=== PATIENT | female | born 1985 | race African-American/Black ===

== ENCOUNTER 2017-08-08 22:35 | Observation (INO) | payer MEDICAID ==
[2017-08-08] MEDS ORDERED: ACETAMINOPHEN 325 MG TAB PO ONE (23:30)
[2017-08-09] MEDS ORDERED: PREN-153 OR (00:21)
== END 2017-08-09 00:02 | disposition home or self-care (01) | DRG 781 ==
LOC: LDRP 22:35
PROVIDERS: ADMIT Obstetrics & Gynecology; ATTEND Obstetrics & Gynecology
DX: O26.893 Other specified pregnancy related conditions, third trimester (principal); O62.9 Abnormality of forces of labor, unspecified; R10.9 Unspecified abdominal pain; R10.2 Pelvic and perineal pain; Z3A.32 32 weeks gestation of pregnancy
CPT/HCPCS: 59025; 81002; G0378

== ENCOUNTER 2017-09-07 19:57 | Observation (INO) | payer MEDICAID ==
[~2017-09-07 19:57] MED LIST: PREN-153 OR
== END 2017-09-07 21:19 | disposition home or self-care (01) | DRG 566 ==
LOC: LDRP 19:57
PROVIDERS: ADMIT Obstetrics & Gynecology; ATTEND Obstetrics & Gynecology
DX: O36.8130 Decreased fetal movements, third trimester, not applicable or unspecified (principal); Z3A.37 37 weeks gestation of pregnancy
CPT/HCPCS: 59025; 76818; 81002; G0378

== ENCOUNTER → 2017-09-11 | Outpatient (CLI) | payer MEDICAID ==
[2017-09-11 10:51] LABS: Basophils # (auto) 0 uL; Basophils % (auto) 0.3 % (0.0-2.0); Eosinophils # (auto) 0.1 uL; Hematocrit 35.6 % (36.0-46.0); Hemoglobin 11.8 g/dL (12.2-16.2); Lymphocytes # (auto) 1.6 uL; Lymphocytes % (auto) 12.1 % (10.0-50.0); Mean Corpuscular Hemoglobin 30.6 pg (28.0-32.0); Mean Corpuscular Hgb Conc. 33.2 g/dL (32.0-36.0); Monocytes # (auto) 0.9 uL; Monocytes % (auto) 6.8 % (0.0-12.0); Neutrophils # (auto) 10.5 uL; Neutrophils % (auto) 79.8 % (37.0-80.0); Nucleated Red Blood Cells % 0.1 %; Platelet Count (auto) 234 10^3/uL (140-450); Red Blood Cells 3.86 10^6/uL (4.0-5.20); Red Cell Distribution Width 15.1 % (11.8-14.3); White Blood Cell 13.2 10^3/uL (4.4-10.8)
[2017-09-11 13:30] LABS: Alcohol, Urine < 3.0 mg/dL (0-5); Amphetamine Screen, Urine NEGATIVE (NEGATIVE); Barbiturate Scree,Urine NEGATIVE (NEGATIVE); Benzodiazephine Screen, Urine NEGATIVE (NEGATIVE); Cannabinoid Screen, Urine NEGATIVE (NEGATIVE); Cocaine Screen, Urine NEGATIVE (NEGATIVE); Opiate Scree,Urine NEGATIVE (NEGATIVE); Phencyclidine Screen, Urine NEGATIVE (NEGATIVE)
== END | disposition home or self-care (01) ==
LOC: LAB 10:08
PROVIDERS: ATTEND Obstetrics & Gynecology
DX: Z34.80 Encounter for supervision of other normal pregnancy, unspecified trimester (principal); Z3A.00 Weeks of gestation of pregnancy not specified
CPT/HCPCS: 36415; 80307; 85025

== ENCOUNTER 2017-09-24 09:30 | Inpatient (IN) | payer MEDICAID ==
[~2017-09-24] VITALS: Ht 157.5 cm; Wt 95.3 kg
[2017-09-24] MEDS: LACTATED RINGER'S 1,000 ML IV SCH ×3 (10:15→17:41)
[2017-09-24 10:39] LABS: Basophils # (auto) 0 uL; Basophils % (auto) 0.1 % (0.0-2.0); Eosinophils # (auto) 0.1 uL; Eosinophils % (auto) 0.8 % (0.0-7.0); Hematocrit 34.5 % (36.0-46.0); Hemoglobin 11.1 g/dL (12.2-16.2); Lymphocytes # (auto) 1.4 uL; Lymphocytes % (auto) 11.4 % (10.0-50.0); Mean Corpuscular Hgb Conc. 32.3 g/dL (32.0-36.0); Mean Corpuscular Volume 93.1 fL (80.0-100.0); Monocytes # (auto) 0.9 uL; Monocytes % (auto) 7.8 % (0.0-12.0); Neutrophils # (auto) 9.7 uL; Neutrophils % (auto) 79.9 % (37.0-80.0); Nucleated Red Blood Cells % 0.1 %; Platelet Count (auto) 231 10^3/uL (140-450); Red Blood Cells 3.71 10^6/uL (4.0-5.20); Red Cell Distribution Width 15.5 % (11.8-14.3); White Blood Cell 12.1 10^3/uL (4.4-10.8)
[2017-09-24 10:52] LABS: Urine Bacteria NONE SEEN /hpf (None Seen); Urine Blood Negative /uL (Negative); Urine Mucus FEW (None Seen); Urine Specific Gravity 1.026 (1.001-1.035); Urine WBC 2 /hpf (0 - 5)
[2017-09-24 10:53] LABS: Albumin 2.4 g/dL (3.4-5.0); Bilirubin, Total 0.2 mg/dL (0.2-1.0); Calcium 8.4 mg/dL (8.5-10.1); Potassium 4.3 mmol/L (3.5-5.1); Total Protein 6.6 g/dL (6.4-8.2)
[2017-09-24 10:58] LABS: INR 0.89 (0.9-1.15); Partial Thromboplastin Time 24.9 sec (22.64-33.71); Prothrombin Time 9.7 sec (9.37-12.3)
[2017-09-24] MEDS ORDERED: MORPHINE SULF(PF) 0.5MG/ML 10ML VIAL ONE (12:46)
[2017-09-24] MEDS ORDERED: PHENYLEPHRINE HCL 10 MG/ML VL ONE (12:47)
[2017-09-24] MEDS ORDERED: ePHEDrine SULFATE 50 MG/ML AMP ONE (12:48)
[2017-09-24] MEDS ORDERED: OXYTOCIN 10 UNIT/ML 10ML VIAL ONE (12:53)
[2017-09-24] MEDS ORDERED: ceFAZolin 1GM VL ONE (12:53)
[2017-09-24] MEDS ORDERED: METOCLOPRAMIDE HCL 5MG/ml INJ 2ml VIAL ONE (13:27)
[2017-09-24] MEDS ORDERED: MIDAZOLAM HCL 1MG/1ML-2 ML VIAL ONE (13:30)
[2017-09-24] MEDS ORDERED: MORPHINE SULFATE 4 MG/ML SYR/VIAL IV PRN (14:15)
[2017-09-24] MEDS ORDERED: ONDANSETRON HCL 4 MG/2 ML VIAL IV PRN ×2 (14:15)
[2017-09-24] MEDS ORDERED: KETOROLAC TROMETH 30 MG/ML 1ML VIAL IV PRN (14:15)
[2017-09-24] MEDS ORDERED: HYDROmorphone HCL 2 MG/ML VL IV PRN (14:15)
[2017-09-24] MEDS ORDERED: ONDANSETRON HCL 4 MG/2 ML VIAL IV ONE (14:15)
[2017-09-24] MEDS ORDERED: NALOXONE HCL 0.4 MG/ML VIAL IV PRN ×2 (14:15)
[2017-09-24 15:40] VITALS: BP 90/44
[2017-09-24 17:25] VITALS: BP 99/61
[2017-09-24] MEDS: KETOROLAC TROMETH 30 MG/ML 1ML VIAL IV SCH ×2 (17:41→23:35)
[2017-09-24 19:00] VITALS: BP 114/68
[2017-09-24] MEDS: diphenhdrAMINE HCL 50 MG/1 ML VL IV PRN ×2 (19:33→23:34)
[2017-09-24] MEDS ORDERED: LACT. RINGERS/OXYTOCIN 20UNITS 1,000 ML IV ONE (19:59)
[2017-09-24 20:00] VITALS: BP 117/71
[2017-09-24] MEDS: ceFAZolin 1GM/50ML 50 ML IV SCH (21:11)
[2017-09-24 21:15] VITALS: BP 108/67
[2017-09-24 23:00] VITALS: BP 105/66
[2017-09-25] VITALS (8 sets, daily range): BP systolic 109–124; BP diastolic 0–70
[2017-09-25] MEDS: LACTATED RINGER'S 1,000 ML IV SCH ×3 (01:41→06:11)
[2017-09-25] MEDS: ceFAZolin 1GM/50ML 50 ML IV SCH ×2 (05:30→12:38)
[2017-09-25] MEDS ORDERED: MORPHINE SULFATE 4 MG/ML SYR/VIAL IV PRN (05:30)
[2017-09-25] MEDS: KETOROLAC TROMETH 30 MG/ML 1ML VIAL IV SCH ×2 (06:01→12:37)
[2017-09-25 07:18] LABS: Basophils # (auto) 0 uL; Basophils % (auto) 0.1 % (0.0-2.0); Eosinophils # (auto) 0 uL; Eosinophils % (auto) 0.2 % (0.0-7.0); Hematocrit 28.6 % (36.0-46.0); Hemoglobin 9.4 g/dL (12.2-16.2); Lymphocytes # (auto) 0.7 uL; Lymphocytes % (auto) 5.1 % (10.0-50.0); Mean Corpuscular Hemoglobin 30.6 pg (28.0-32.0); Mean Corpuscular Volume 92.7 fL (80.0-100.0); Monocytes # (auto) 0.9 uL; Monocytes % (auto) 6.7 % (0.0-12.0); Neutrophils # (auto) 11.7 uL; Neutrophils % (auto) 87.9 % (37.0-80.0); Platelet Count (auto) 190 10^3/uL (140-450); Red Blood Cells 3.08 10^6/uL (4.0-5.20); Red Cell Distribution Width 15.5 % (11.8-14.3); White Blood Cell 13.3 10^3/uL (4.4-10.8)
[2017-09-25] MEDS: DOCUSATE SOD 100 MG CAP PO SCH ×2 (10:00→22:27)
[2017-09-25] MEDS ORDERED: HYDROcodone-ACET 5/325MG TAB PO PRN (10:00)
[2017-09-25] MEDS: HYDROcodone-ACET 5/325MG TAB PO PRN ×3 (13:57→23:39)
[2017-09-25] MEDS: IBUPROFEN 800 MG TAB PO PRN ×2 (15:01→22:27)
[2017-09-25] MEDS ORDERED: TETANUS-DIPTH-ACEL PERTUSSIS 0.5ML SYRG IM ONE (19:00)
[2017-09-26 03:45] VITALS: BP 118/70
[2017-09-26] MEDS: HYDROcodone-ACET 5/325MG TAB PO PRN ×3 (04:02→22:12)
[2017-09-26] MEDS: SIMETHICONE 80 MG CHEWABLE TABLET PO PRN ×4 (04:56→22:12)
[2017-09-26 07:22] VITALS: BP 99/55
[2017-09-26] MEDS: IBUPROFEN 800 MG TAB PO PRN ×3 (07:24→17:03)
[2017-09-26] MEDS ORDERED: TETANUS-DIPTH-ACEL PERTUSSIS 0.5ML SYRG IM ONE (10:00)
[2017-09-26] MEDS: DOCUSATE SOD 100 MG CAP PO SCH ×2 (10:19→22:12)
[2017-09-26 11:30] VITALS: BP 109/75
[2017-09-26 15:10] VITALS: BP 111/67
[2017-09-26 19:00] VITALS: BP 140/73
[2017-09-26 23:15] VITALS: BP 115/71
[2017-09-27] MEDS: IBUPROFEN 800 MG TAB PO PRN (01:27)
[2017-09-27 02:55] VITALS: BP 122/78
[2017-09-27] MEDS: HYDROcodone-ACET 5/325MG TAB PO PRN ×2 (03:36→08:07)
[2017-09-27 06:40] VITALS: BP 121/70
[2017-09-27] MEDS: DOCUSATE SOD 100 MG CAP PO SCH (09:58)
== END 2017-09-27 10:40 | disposition home or self-care (01) | DRG 540 ==
LOC: LDRP 09:30
PROVIDERS: ADMIT Specialist; ATTEND Specialist
PROC: 0DNW0ZZ Release Peritoneum, Open Approach (ICD-10-PCS; 2017-09-24)
PROC: 10D00Z1 Extraction of Products of Conception, Low, Open Approach (ICD-10-PCS; principal; 2017-09-24 12:54)
DX: O34.211 Maternal care for low transverse scar from previous cesarean delivery (principal); K66.0 Peritoneal adhesions (postprocedural) (postinfection); O99.62 Diseases of the digestive system complicating childbirth; Z37.0 Single live birth; Z3A.39 39 weeks gestation of pregnancy
CPT/HCPCS: 36415; 51702; 59025; 80053; 81001; 81002; 85025; 85610; 85730; 86850; 86900; 86901; 90472; 90715; 94762; 96365; 96374; 96375; J0690; J1885; J2250; J2590

== ENCOUNTER 2020-01-18 01:50 | Observation (INO) | payer MEDICAID ==
[~2020-01-18] VITALS: Ht 157.5 cm; Wt 96.6 kg
[2020-01-18] MEDS ORDERED: LACTATED RINGER'S 1,000 ML IV ONE (03:12)
[2020-01-18] MEDS: TERBUTALINE SULFATE 1 MG/ML 1ML VIAL SC SCH ×2 (03:41→04:00)
== END 2020-01-18 04:52 | disposition home or self-care (01) | DRG 563 ==
LOC: LDRP 01:50
PROVIDERS: ADMIT Specialist; ATTEND Specialist
DX: O60.03 Preterm labor without delivery, third trimester (principal); O62.9 Abnormality of forces of labor, unspecified; Z3A.30 30 weeks gestation of pregnancy
CPT/HCPCS: 59025; 81002; 96360; 96361; 96372; G0378; J3105

== ENCOUNTER 2020-02-03 20:15 | Observation (INO) | payer MEDICAID ==
[~2020-02-03] VITALS: Ht 157.5 cm; Wt 97.5 kg
== END 2020-02-03 22:10 | disposition home or self-care (01) | DRG 566 ==
LOC: LDRP 20:15
PROVIDERS: ADMIT Specialist; ATTEND Specialist
DX: O36.8130 Decreased fetal movements, third trimester, not applicable or unspecified (principal); Z3A.33 33 weeks gestation of pregnancy
CPT/HCPCS: 59025; 76818; 81002; G0378

== ENCOUNTER 2020-02-26 14:57 | Observation (INO) | payer MEDICAID ==
[~2020-02-26] VITALS: Ht 157.5 cm; Wt 81.6 kg
[2020-02-26] MEDS ORDERED: TERBUTALINE SULFATE 1 MG/ML 1ML VIAL SC SCH (15:45)
[2020-02-26] MEDS ORDERED: LACTATED RINGER'S 1,000 ML IV ONE (15:45)
== END 2020-02-26 17:25 | disposition home or self-care (01) ==
LOC: LDRP 14:57
PROVIDERS: ADMIT Specialist; ATTEND Specialist
DX: O26.893 Other specified pregnancy related conditions, third trimester (principal); R10.9 Unspecified abdominal pain; M54.9 Dorsalgia, unspecified; Z3A.36 36 weeks gestation of pregnancy; Z98.891 History of uterine scar from previous surgery
CPT/HCPCS: 59025; 76815; 76817; 81002; 96360; 96372; G0378; J3105; 96365

== ENCOUNTER 2020-03-03 00:15 | Observation (INO) | payer MEDICAID ==
[~2020-03-03] VITALS: Ht 0 cm
[2020-03-03] MEDS ORDERED: LACTATED RINGER'S 1,000 ML IV SCH (01:43)
[2020-03-03] MEDS ORDERED: TERBUTALINE SULFATE 1 MG/ML 1ML VIAL SC SCH (01:45)
[2020-03-03] MEDS ORDERED: AZITTAB PO (14:44)
== END 2020-03-03 04:02 | disposition home or self-care (01) ==
LOC: LDRP 00:15
PROVIDERS: ADMIT Specialist; ATTEND Specialist
DX: O36.8930 Maternal care for other specified fetal problems, third trimester, not applicable or unspecified (principal); O26.893 Other specified pregnancy related conditions, third trimester; R50.9 Fever, unspecified; O99.513 Diseases of the respiratory system complicating pregnancy, third trimester; R05 Cough; Z3A.37 37 weeks gestation of pregnancy
CPT/HCPCS: 59025; 76818; 81002; 94760; 96360; 96361; 96372; G0378; J3105

== ENCOUNTER 2020-03-03 04:04 | Inpatient (IN) | payer MEDICAID ==
[~2020-03-03] VITALS: Ht 157.5 cm; Wt 97.1 kg
[2020-03-03 04:59] LABS: Basophils # (auto) 0 10 ^3/uL (0-0.2); Eosinophils # (auto) 0 10 ^3/uL (0-0.8); Hemoglobin 9.4 g/dL (12.2-16.2); Lymphocytes # (auto) 0.8 10 ^3/uL (0.4-5.4); Neutrophils # (auto) 6.3 10 ^3/uL (1.6-8.6)
[2020-03-03] MEDS ORDERED: SODIUM CHLORIDE 0.9% 1,000 ML IV ONE (05:00)
[2020-03-03 05:01] LABS: Basophils % (auto) 0.2 % (0.0-2.0); Eosinophils % (auto) 0.3 % (0.0-7.0); Hematocrit 28.9 % (36.0-46.0); Lymphocytes % (auto) 10.6 % (10.0-50.0); Mean Corpuscular Hemoglobin 25.2 pg (28.0-32.0); Mean Corpuscular Hgb Conc. 32.5 g/dL (32.0-36.0); Mean Corpuscular Volume 77.3 fL (80.0-100.0); Monocytes # (auto) 0.4 10 ^3/uL (0-1.3); Monocytes % (auto) 4.9 % (0.0-12.0); Platelet Count (auto) 198 10^3/uL (140-450); Red Blood Cells 3.74 10^6/uL (4.0-5.20); Red Cell Distribution Width 17.9 % (11.8-14.3); White Blood Cell 7.5 10^3/uL (4.4-10.8)
[2020-03-03 05:15] LABS: INR 0.89 (0.9-1.15); Partial Thromboplastin Time 30.8 sec (23.0-31.2)
[2020-03-03 05:18] LABS: Albumin 2.3 g/dL (3.4-5.0); Calcium 7.7 mg/dL (8.5-10.1); Potassium 3.2 mmol/L (3.5-5.1)
[2020-03-03 05:23] LABS: BUN/Creatinine Ratio 11.3; Bilirubin, Total 0.3 mg/dL (0.2-1.0); Total Protein 6.4 g/dL (6.4-8.2)
[2020-03-03] MEDS ORDERED: PIPERACILLIN-TAZOB 3.375GM 100 ML IV ONE (06:30)
[2020-03-03] MEDS ORDERED: NITROGLYCERIN 0.4 MG SL TAB SL PRN (07:00)
[2020-03-03] MEDS ORDERED: MORPHINE SULF INJ 2 MG/ML SYRINGE 1ML IV PRN (07:00)
[2020-03-03] MEDS ORDERED: ACETAMINOPHEN 325 MG TAB PO PRN (07:00)
[2020-03-03] MEDS ORDERED: ONDANSETRON HCL 4 MG/2 ML VIAL IV PRN (07:00)
[2020-03-03 07:24] LABS: Magnesium 2.3 mg/dL (1.6-2.6)
[2020-03-03 07:33] LABS: CRP High Sensitivity 7.38 mg/dL (< 0.3)
[2020-03-03 07:40] LABS: Urine WBC None Seen /hpf (0 - 5)
[2020-03-03 08:15] LABS: Urine Bacteria FEW /hpf (None Seen); Urine Blood Negative /uL (Negative); Urine Specific Gravity 1.004 (1.001-1.035)
--- NOTE | 2020-03-03 08:50 | NUR ---
Telemetry admit from ER ELENA SELLERS admitted to Telemetry unit after SBAR received. Patient oriented to WOLF JAIMES RN primary RN, unit, room, bed, and unit policies regarding patient care and visiting hours. Patient now on continuous telemetry monitoring, tele box # 6 and telemetry reading on arrival to unit is SR. Patient placed on bedside oxygen, weighed by bedscale and encouraged to call if they need something. All questions and concerns addressed, patient verbalized understanding.
--- NOTE | 2020-03-03 12:05 | NUR ---
ROUNDING MD STEIN AT BEDSIDE. ALL QUESTIONS AND CONCERNS ADDRESSED AT THIS TIME.
[2020-03-03 12:43] VITALS: BP 104/62
[2020-03-03] MEDS ORDERED: PIPERACILLIN-TAZOB 3.375GM 100 ML IV SCH (14:00)
--- NOTE | 2020-03-03 14:10 | NUR ---
PAGED MD VICTOR RE: PENDING CONSULT AND MEDICATION PER MD PATIENT IS CLEARED FROM OBGYN STANDPOINT. RN TO NOTIFY MD STEIN
--- NOTE | 2020-03-03 14:13 | NUR ---
Respiratory note: POX CHECK, HR 81, RR 16, SPO2 95% ON ROOM AIR.
--- NOTE | 2020-03-03 14:13 | NUR ---
PAGE PLACED TO MD STEIN RE: OBGYN CLEARANCE. AWAITING CALL BACK
--- NOTE | 2020-03-03 14:30 | NUR ---
PT DENIES LOF, VB, OR UC'S. +FM. NST REACTIVE, MOD VARIABILITY, 15X15 ACCELS, NO DECELS. BASELINE 120. 1 UC NOTED.
--- NOTE | 2020-03-03 14:38 | NUR ---
RE-PAGED MD STEIN RE: OBGYN CLEARANCE. AWAITING CALL BACK
[2020-03-03] MEDS ORDERED: AZITTAB PO (14:44)
[2020-03-03] MEDS ORDERED: POTASSIUM EFFERVESENT TAB 25 MEQ PO ONE (15:00)
[2020-03-03 15:01] VITALS: BP 104/62
--- NOTE | 2020-03-03 18:16 | NUR ---
Discharge instructions given as ordered. Encourage to follow up with PMD as instructed. All questions and concerns addressed. Patient verbalized understanding. Medication reconciliation form completed and copy given to patient. IV removed with catheter intact, pressure dressing applied, levy catheter removed. Telemetry unit returned to ICU. Patient taken to vehicle via wheelchair with all personal belongings, accompanied by staff, SECURITY AND EVS. No distress noted at time of departure.
== END 2020-03-03 18:16 | disposition home or self-care (01) | DRG 566 ==
LOC: ER 04:06 → TELE 04:07 → TELE-EAST 09:02
PROVIDERS: ADMIT Nurse Practitioner; ATTEND Internal Medicine Nephrology
DX: O98.513 Other viral diseases complicating pregnancy, third trimester (principal); U07.1 COVID-19; O99.513 Diseases of the respiratory system complicating pregnancy, third trimester; O99.213 Obesity complicating pregnancy, third trimester; E66.9 Obesity, unspecified; O99.013 Anemia complicating pregnancy, third trimester; D50.9 Iron deficiency anemia, unspecified; O25.13 Malnutrition in pregnancy, third trimester; J12.89 Other viral pneumonia; J01.00 Acute maxillary sinusitis, unspecified; E44.0 Moderate protein-calorie malnutrition; Z3A.37 37 weeks gestation of pregnancy
CPT/HCPCS: 36415; 71045; 80053; 81001; 82728; 83605; 83615; 83735; 84443; 85025; 85379; 85610; 85730; 86141; 87040; 87804; 96361; 96365; 96366; G0378; J2543

== ENCOUNTER 2020-03-05 14:04 | Observation (INO) | payer MEDICAID ==
[~2020-03-05 14:04] MED LIST changes: +AZITTAB PO
== END 2020-03-05 16:06 | disposition home or self-care (01) ==
LOC: LDRP 14:04 → UNDODISOB 16:06
PROVIDERS: ADMIT Obstetrics & Gynecology; ATTEND Obstetrics & Gynecology
DX: O98.513 Other viral diseases complicating pregnancy, third trimester (principal); U07.1 COVID-19; Z3A.37 37 weeks gestation of pregnancy
CPT/HCPCS: 59025; 76818; 81002; G0378

== ENCOUNTER 2020-03-15 03:55 | Inpatient (IN) | payer MEDICAID ==
[~2020-03-15] VITALS: Ht 30.5 cm; Wt 0.5 kg
[2020-03-15 05:38] LABS: Hemoglobin 9.5 g/dL (12.2-16.2); Neutrophils # (auto) 10.3 10 ^3/uL (1.6-8.6)
[2020-03-15 05:40] LABS: Basophils # (auto) 0.1 10 ^3/uL (0-0.2); Basophils % (auto) 0.4 % (0.0-2.0); Eosinophils # (auto) 0.1 10 ^3/uL (0-0.8); Eosinophils % (auto) 0.5 % (0.0-7.0); Lymphocytes # (auto) 2.2 10 ^3/uL (0.4-5.4); Lymphocytes % (auto) 16.1 % (10.0-50.0); Mean Corpuscular Hemoglobin 24.9 pg (28.0-32.0); Mean Corpuscular Hgb Conc. 31.8 g/dL (32.0-36.0); Mean Corpuscular Volume 78.1 fL (80.0-100.0); Monocytes % (auto) 7.5 % (0.0-12.0); Neutrophils % (auto) 75.5 % (37.0-80.0); Platelet Count (auto) 432 10^3/uL (140-450); Red Blood Cells 3.84 10^6/uL (4.0-5.20); Red Cell Distribution Width 18.7 % (11.8-14.3); White Blood Cell 13.7 10^3/uL (4.4-10.8)
[2020-03-15 05:43] LABS: Urine Bacteria FEW /hpf (None Seen); Urine Blood Negative /uL (Negative); Urine Mucus FEW (None Seen); Urine WBC <1 /hpf (0 - 5)
[2020-03-15 05:52] LABS: INR 0.95 (0.9-1.15)
[2020-03-15 05:57] LABS: Albumin 2.4 g/dL (3.4-5.0); Calcium 9.6 mg/dL (8.5-10.1); Potassium 3.7 mmol/L (3.5-5.1)
[2020-03-15 06:00] LABS: Bilirubin, Total 0.3 mg/dL (0.2-1.0); Total Protein 6.9 g/dL (6.4-8.2)
[2020-03-15] MEDS: LACTATED RINGER'S 1,000 ML IV SCH ×3 (07:10→23:02)
[2020-03-15] MEDS ORDERED: LACTATED RINGER'S 1,000 ML IV ONE (08:15)
--- NOTE | 2020-03-15 08:43 | NUR ---
Dr. Quezada at nursing station and made aware of lab values. per Dr. Quezada hold 2 units packed red blood cells for hgb of 9.5 , hct 30.0, and patient going for repeat at 1200 today. give medication terb 0.25 mg/sq times 3 if needed for contraction only if patient is feeling and has discomfort. dr. quezada also aware per dr. gayle gave 1000 ml of lr bolus order and pretty are 1/10 min now and is sleeping before bolus given patient felt them.
[2020-03-15] MEDS: TERBUTALINE SULFATE 1 MG/ML 1ML VIAL SC SCH ×2 (09:20→11:32)
[2020-03-15] MEDS ORDERED: TETRACAINE 1% INJ 2 ML VIAL IJ ONE ×2 (14:58→15:28)
[2020-03-15] MEDS ORDERED: ePHEDrine SULFATE 50 MG/ML AMP IV ONE (15:15)
[2020-03-15] MEDS ORDERED: MORPHINE SULF(PF) 0.5MG/ML 10ML VIAL ONE (15:25)
[2020-03-15] MEDS ORDERED: MIDAZOLAM HCL 1MG/1ML-2 ML VIAL ONE (15:25)
[2020-03-15] MEDS ORDERED: fentaNYL CITRATE 100 MCG/2 ML VL ONE (15:25)
[2020-03-15] MEDS ORDERED: SUCCINYLCHOLINE CHLORIDE 20 MG/ML 10ML VIAL IV ONE (15:28)
[2020-03-15] MEDS ORDERED: ceFAZolin 1GM/50ML 50 ML IV ONE (15:31)
[2020-03-15] MEDS ORDERED: OXYTOCIN 10UNIT/ML 1ML VIAL ONE (16:22)
--- NOTE | 2020-03-15 17:00 | NUR ---
Post Op for LDRP: Received patient from PACU via bed to room 101 . Patient A/A/Ox4, abdominal binder and bilateral SCD's are in place, IV fluids placed on pump and infusing per order, incisional site dressing clean/dry/intact and Ortega Catheter to gravity draining clear yellow urine. Incentive Spirometer at bedside and instruction on proper use with return demonstration done by patient. fundus at umbilicus scant bleeding
[2020-03-15] MEDS ORDERED: LACTATED RINGER'S 1,000 ML IV SCH (17:13)
[2020-03-15] MEDS ORDERED: ONDANSETRON HCL 4 MG/2 ML VIAL IV PRN ×2 (17:15→19:00)
[2020-03-15] MEDS ORDERED: GUM (CHEWING) 1 GUM CHEW CHEW ONE (17:15)
[2020-03-15] MEDS ORDERED: ACETAMINOPHEN IV 1000 MG/100ML (10MG/ML) IV PRN ×3 (17:15→18:45)
--- NOTE | 2020-03-15 18:35 | NUR ---
itching Pt c/o itching. Call placed to Dr Shields. Orders received for Benadryl 25mg IVP Q4hr. Order placed. Primary RN informed.
[2020-03-15] MEDS ORDERED: diphenhdrAMINE HCL 50 MG/1 ML VL IV PRN (18:45)
[2020-03-15 19:00] VITALS: BP 130/66
[2020-03-15] MEDS ORDERED: HYDROmorphone HCL 2 MG/ML VL IV PRN (19:00)
[2020-03-15] MEDS ORDERED: NALBUPHINE HCL 10 MG/1ml INJECTION SUBCUT ONE (19:00)
[2020-03-15] MEDS ORDERED: LABETALOL HCL 5 MG/ML 4ML SYRINGE IV PRN (19:00)
[2020-03-15] MEDS ORDERED: ePHEDrine SULFATE 50 MG/ML AMP IV PRN (19:00)
[2020-03-15] MEDS ORDERED: DexAMETHasone SOD PHOS 10MG/1ML VIAL INJ IV PRN (19:00)
[2020-03-15] MEDS ORDERED: NALOXONE HCL 0.4 MG/ML VIAL IV PRN (19:00)
[2020-03-15 21:30] VITALS: BP 121/59
[2020-03-15] MEDS: KETOROLAC TROMETH 30 MG/ML 1ML VIAL IV PRN (22:55)
[2020-03-15] MEDS: ceFAZolin 1GM/50ML 50 ML IV SCH (22:55)
[2020-03-15 23:00] VITALS: BP_SYST 104; BP_SYST 119; BP_DIAS 58; BP_DIAS 89
[2020-03-15] MEDS: diphenhdrAMINE HCL 50 MG/1 ML VL IV PRN (23:02)
[2020-03-16] VITALS (8 sets, daily range): BP systolic 104–119; BP diastolic 16–89
--- NOTE | 2020-03-16 01:30 | NUR ---
Ambulation: Pt requesting to get out of bed to ambulate. Flora MIMS gives orders to ambulate at this time.Patient OOB with standby assistance by RN. Patient ambulates bedroom with steady gait. Ortega catheter remains in place draining to gravity. Pericare teaching provided with returned demonstration by patient. Clean gown provided and bed linen changed. Patient ambulated back to bed with steady gait and no distress noted.
[2020-03-16] MEDS: diphenhdrAMINE HCL 50 MG/1 ML VL IV PRN (04:16)
[2020-03-16] MEDS: KETOROLAC TROMETH 30 MG/ML 1ML VIAL IV PRN ×2 (04:16→15:12)
--- NOTE | 2020-03-16 04:45 | NUR ---
Levy catheter dc'd Order to discontinue levy catheter. Levy dc'd with clean technique following deflation of balloon. Patient tolerated well with no complaints of pain. Continue care.
[2020-03-16 05:10] LABS: RPR Non Reactive (Non Reactive)
[2020-03-16] MEDS: ceFAZolin 1GM/50ML 50 ML IV SCH ×2 (06:54→15:12)
[2020-03-16] MEDS: HYDROmorphone HCL 2 MG/ML VL IV PRN ×2 (07:01→11:20)
[2020-03-16 07:29] LABS: Basophils # (auto) 0 10 ^3/uL (0-0.2); Eosinophils # (auto) 0 10 ^3/uL (0-0.8); Hematocrit 27.6 % (36.0-46.0); Mean Corpuscular Hemoglobin 24.9 pg (28.0-32.0)
[2020-03-16 07:32] LABS: Basophils % (auto) 0.2 % (0.0-2.0); Eosinophils % (auto) 0.3 % (0.0-7.0); Hemoglobin 8.8 g/dL (12.2-16.2); Lymphocytes # (auto) 1.2 10 ^3/uL (0.4-5.4); Lymphocytes % (auto) 11.6 % (10.0-50.0); Mean Corpuscular Hgb Conc. 31.8 g/dL (32.0-36.0); Mean Corpuscular Volume 78.3 fL (80.0-100.0); Monocytes # (auto) 0.7 10 ^3/uL (0-1.3); Monocytes % (auto) 7.1 % (0.0-12.0); Neutrophils # (auto) 8.5 10 ^3/uL (1.6-8.6); Neutrophils % (auto) 80.8 % (37.0-80.0); Platelet Count (auto) 330 10^3/uL (140-450); Red Blood Cells 3.53 10^6/uL (4.0-5.20); Red Cell Distribution Width 18.4 % (11.8-14.3); White Blood Cell 10.5 10^3/uL (4.4-10.8)
--- NOTE | 2020-03-16 13:00 | NUR ---
DR ASHTON CALLED AND UPDATED ON PT, CONSULT HOSPITALIST FOR COVID. MAY START POST OP DAY 1 ORDERS AT 1530.
--- NOTE | 2020-03-16 14:34 | NUR ---
COVID RESULTS POSITIVE.
[2020-03-16] MEDS ORDERED: ceFAZolin 1GM/50ML 50 ML IV ONE (14:54)
--- NOTE | 2020-03-16 15:30 | NUR ---
SPOKE WITH DR LOPEZ FOR HOSPITALIST CONSULT, WILL SEE PT TODAY OR TOMORROW. IF O2 SATS <92% PLACE PT ON OXYGEN TO MAINTAIN SATS >92%. DR LOPEZ CELL NUMBER.
[2020-03-16] MEDS ORDERED: SIMETHICONE 80 MG CHEWABLE TABLET PO PRN (15:45)
[2020-03-16] MEDS ORDERED: HYDROcodone-ACET 5/325MG TAB PO PRN (15:45)
--- NOTE | 2020-03-16 15:47 | NUR ---
DR ASHTON CALLED AND NOTIFIED OF COVID + AND DR LOPEZ WILL SEE PT.
--- NOTE | 2020-03-16 15:51 | NUR ---
DR ASHTON AWARE OF CURRENT HGB OF 8.8.
--- NOTE | 2020-03-16 16:00 | NUR ---
DR LOPEZ AT BEDSIDE.
--- NOTE | 2020-03-16 16:50 | NUR ---
PT TO NICK MONTERO REMAINED IN ROOM. DRESSING REMOVED FROM LOWER ABDOMEN, SITE CLEAN AND DRY, NO REDNESS, DRAINAGE, OR ODOR NOTED.
--- NOTE | 2020-03-16 17:15 | NUR ---
VISITOR I WAS CALLED TO THE UNIT TO SPEAK WITH THE OF THE PATIENT WHO IS REQUESTING TO COME IN AND SEE THE PATIENT, I WAS ADVISED THAT THE WAS INFORMED WHEN THE PATIENT WAS ADMITTED THAT HE IS ALLOWED TO BE WITH THE PATIENT BUT NOT COME AND GO, PER PRACTICE PERFORMANCE MANAGER THE DIRECTOR SPOKE WITH THE PATIENT IN LENGTH ON 03/18/2020 ABOUT THE VISITATION POLICY WHICH THE IS DENYING. I ATTEMPTED TO INFORM THE THAT HE WOULD NOT BE ALLOWED TO COME IN TO VISIT DUE TO HIM NOT BEING THERE ALL DAY AND HIM BEING INFORMED MULTIPLE TIMES THAT HE CAN NOT COME AND GO. IS VERY CONFRONTATIONAL AND HARD TO EDUCATE SO THIS IS ALSO A REASON THAT VISITATION WAS DENIED. I SPOKE WITH THE V GROOVE CUTTER WHO AGREES WITH THE POC AT THIS TIME.
--- NOTE | 2020-03-16 17:15 | NUR ---
PT's significant other arrived to unit requesting to come in. Yesterday when PT's significant other (Shawanda) when arrived to unit was screened and told about Covid visitation policy at the [facility] (only 1 visitor, no going in & out during her stay, and gowning). A couple of hours later, he wanted to leave the unit stating he had to get his medication out the car, discussed visiting policy again and was upset during this interaction. I watched him drive off the facility premises. When he returned, Sarai Patel, Director of [facility] along with Security, spoke with him regarding wearing face mask at all times, leaving the unit, and following the rules and may not be let back onto the unit if not obeying the rules. During the night he left the unit. Today @ 1715 he returned. Informed him, he would not be let back onto the unit because he is not abiding by the visitation rules set by the [facility] during Covid restrictions and putting the staff at risk. He was upset request to speak with the Movement Therapist. Informed him our Director was not available at this time, but I will have Forensic Artist come to speak with him. Called Junior Patel informed her of situation and Remy Ceron came to speak with Shawanda. Security was present. Omer was not satisfied requesting policy. He was given Hospital visitors notice and left unit unit upset. Spoke with PT over the phone regarding the importance of obeying visiting policy, especially since she is on isolation for Covid and we don't know what his status is. Informed her that he was spoken to regarding visitation yesterday, several times. Discussed the risk he places the staff with him coming and going off the unit. PT states she understands.
[2020-03-16] MEDS: HYDROcodone-ACET 5/325MG TAB PO PRN (18:55)
[2020-03-16] MEDS ORDERED: BISACODYL 10 MG RECT SUPP PR ONE (20:30)
[2020-03-16] MEDS: DOCUSATE SOD 100 MG CAP PO SCH (22:18)
[2020-03-16] MEDS: IBUPROFEN 800 MG TAB PO PRN (22:18)
[2020-03-17] VITALS (7 sets, daily range): BP systolic 108–127; BP diastolic 53–60
[2020-03-17] MEDS: HYDROcodone-ACET 5/325MG TAB PO PRN ×4 (04:09→21:35)
--- NOTE | 2020-03-17 04:10 | NUR ---
IV removal IV DC'd with sterile technique, catheter fully intact. Pressure dressing applied to site. Patient tolerated procedure well. Discharged with aftercare instructions per MD. NOTE:
[2020-03-17] MEDS ORDERED: TETANUS-DIPTH-ACEL PERTUSSIS 0.5ML SYR Tdap IM ONE (07:00)
[2020-03-17] MEDS: IBUPROFEN 800 MG TAB PO PRN ×2 (07:10→15:59)
--- NOTE | 2020-03-17 07:30 | NUR ---
TDAP vaccine prepared for patient. Patient refused states she is up to date on TDAP vaccine and refuses it at this time.
[2020-03-17] MEDS ORDERED: diphenhdrAMINE HCL 25 MG CAP PO PRN (07:45)
[2020-03-17] MEDS: DOCUSATE SOD 100 MG CAP PO SCH ×2 (10:13→21:33)
--- NOTE | 2020-03-17 10:32 | NUR ---
cert info discussed and reviewed with patient
--- NOTE | 2020-03-17 13:05 | NUR ---
Called Dr. Shields's clinic per clinic staff patient must have negative Covid-19 results before scheduling 2 week appt.
--- NOTE | 2020-03-17 14:15 | NUR ---
Pulmonology Consult\ Dr. Martinez at patients bedside for Pulmonology consult, Discussed plan of care with patient. No further orders received at this time.
--- NOTE | 2020-03-17 14:24 | NUR ---
Discharge: Discharge instructions given as ordered. Pt encouraged to follow up with SPECIAL TECHNICAL OPERATIONS OFFICER as instructed after receiving a negative Covid result ( as per OB clinic) All questions and concerns addressed. Patient verbalized understanding.
--- NOTE | 2020-03-17 22:34 | NUR ---
pt states she is hot. no fans available, engineering called. washcloths given to patient to damp and apply to forehead if needed. instructed pt to keep infant unwrapped.
--- NOTE | 2020-03-18 02:00 | NUR ---
C/S Staple Removal DC Note: [place] removed using sterile technique by onion tier. Lower abdominal incision approximated, no redness/inflammation visualized at time of removal, small bleeding noted. Steri-strips applied. Education provided on incisional care. Patient verbalized understanding and willingness to comply to instructions/teaching provided.
[2020-03-18] MEDS: HYDROcodone-ACET 5/325MG TAB PO PRN ×3 (02:03→10:37)
[2020-03-18 03:01] VITALS: BP 131/76
[2020-03-18] MEDS: IBUPROFEN 800 MG TAB PO PRN (05:03)
[2020-03-18 06:50] VITALS: BP 130/65
[2020-03-18 10:21] VITALS: BP 115/60
[2020-03-18] MEDS: DOCUSATE SOD 100 MG CAP PO SCH (10:37)
--- NOTE | 2020-03-18 11:00 | NUR ---
Discharge: Discharge instructions given as ordered. Pt encouraged to follow up with A/C TECHNICIAN as instructed at [facility] April 01 at 0900AM. All questions and concerns addressed. Patient verbalized understanding and agrees with POC at this time. Medication reconciliation completed and copy given to patient. RX for [place] provided to patient. Patient encouraged to prepare to depart unit. Awaiting FOB to arrive with car seat at this time
--- NOTE | 2020-03-18 12:35 | NUR ---
Discharge: Patient taken to vehicle ,ambulated with steady gait, with all personal belongings, accompanied by staff . No distress noted at time of departure, no adverse changes in status since initial assessment.
--- NOTE | 2020-03-18 12:52 | NUR ---
1239 pt given handout for [facility] on " SAVE YOUR LIFE" discussed in detail. Pt verbalizes understanding.
== END 2020-03-18 12:30 | disposition home or self-care (01) | DRG 540 ==
LOC: LDRP 03:55
PROVIDERS: ADMIT Specialist; ATTEND Specialist
PROC: 10D00Z1 Extraction of Products of Conception, Low, Open Approach (ICD-10-PCS; principal; 2020-03-15 15:25)
DX: O98.52 Other viral diseases complicating childbirth (principal); O69.81X0 Labor and delivery complicated by cord around neck, without compression, not applicable or unspecified; O34.211 Maternal care for low transverse scar from previous cesarean delivery; O99.02 Anemia complicating childbirth; O99.214 Obesity complicating childbirth; O99.52 Diseases of the respiratory system complicating childbirth; U07.1 COVID-19; Z37.0 Single live birth; Z3A.39 39 weeks gestation of pregnancy; K66.0 Peritoneal adhesions (postprocedural) (postinfection); J12.89 Other viral pneumonia; E66.01 Morbid (severe) obesity due to excess calories; D64.9 Anemia, unspecified; Z28.89 Immunization not carried out for other reason
CPT/HCPCS: 36415; 59025; 80053; 81001; 84112; 85025; 85610; 85730; 86592; 86850; 86900; 86901; 86920; 87426; 90715; 94760; 96360; 96361; 96374; 96375; G0378; J0131; J0330; J0690; J1885; J2250

== ENCOUNTER 2023-09-26 10:54 | Emergency (ER) | payer MEDICAID ==
[~2023-09-26] VITALS: Ht 157.5 cm; Wt 90.0 kg
[~2023-09-26 10:54] MED LIST changes: -AZITTAB PO; -PREN-153 OR; +PREN1TAB71 OR
[2023-09-26 11:26] LABS: Basophils # (auto) 0 10 ^3/uL (0-0.2); Basophils % (auto) 0.6 % (0.0-2.0); Eosinophils # (auto) 0.2 10 ^3/uL (0-0.8); Eosinophils % (auto) 2.1 % (0.0-7.0); Hematocrit 37.5 % (36.0-46.0); Hemoglobin 12.3 g/dL (12.2-16.2); Lymphocytes # (auto) 2.1 10 ^3/uL (0.4-5.4); Lymphocytes % (auto) 26.2 % (10.0-50.0); Mean Corpuscular Hemoglobin 28.5 pg (28.0-32.0); Mean Corpuscular Hgb Conc. 32.7 g/dL (32.0-36.0); Mean Corpuscular Volume 87.1 fL (80.0-100.0); Monocytes # (auto) 0.4 10 ^3/uL (0-1.3); Monocytes % (auto) 5.3 % (0.0-12.0); Neutrophils # (auto) 5.3 10 ^3/uL (1.6-8.6); Neutrophils % (auto) 65.8 % (37.0-80.0); Nucleated Red Blood Cells % 0.1 %; Red Cell Distribution Width 15.9 % (11.8-14.3); White Blood Cell 8.1 10^3/uL (4.4-10.8)
[2023-09-26 11:33] LABS: Urine Bacteria NONE SEEN /hpf (None Seen); Urine Blood 1+ /uL (Negative); Urine Clarity Clear (Clear); Urine Color Colorless (Yellow); Urine Hyaline Cast FEW /lpf (0 - 2); Urine Protein, UAD Negative (Negative); Urine Specific Gravity 1.023 (1.001-1.035); Urine Urobilinogen Normal (Negative); Urine WBC <1 /hpf (0 - 5)
[2023-09-26 11:38] LABS: Alanine Aminotransferase 13 U/L (7-40); Albumin 4.3 g/dL (3.2-4.8); Alkaline Phosphatase 66 U/L (46-116); Anion Gap 5 (5-15); Aspartate Aminotransferase 10 U/L (13-40); BUN/Creatinine Ratio 18.2 (10.0-20.0); Blood Urea Nitrogen 12 mg/dL (9-23); Calcium 9.8 mg/dL (8.7-10.4); Carbon Dioxide 25 mmol/L (20-30); Chloride 109 mmol/L (98-107); Glucose 97 mg/dL (74-106); Potassium 4.2 mmol/L (3.5-5.1); Sodium 139 mmol/L (136-145)
[2023-09-26 11:39] LABS: Bilirubin, Total 0.4 mg/dL (0.2-1.0); Total Protein 6.9 g/dL (5.7-8.2)
[2023-09-26] MEDS ORDERED: NAPR-1334 PO (14:54)
[2023-09-26 15:22] VITALS: BP 120/54; TEMP 98
[2023-09-26 15:23] VITALS: PULSE 62; RESP 16; O2SAT 98
== END 2023-09-26 15:31 | disposition home or self-care (01) ==
LOC: ER 10:54
DX: R07.89 Other chest pain (principal)
CPT/HCPCS: 36415; 71045; 80053; 81001; 84484; 85025; 85379; 93005

== ENCOUNTER 2024-06-06 12:32 | Emergency (ER) | payer MEDICAID ==
[~2024-06-06] VITALS: Ht 167.6 cm; Wt 86.5 kg
[~2024-06-06 12:32] MED LIST changes: +NAPR-1335 PO
[2024-06-06 13:36] VITALS: BP 126/77; PULSE 106; RESP 20; TEMP 98.2; O2SAT 98
[2024-06-06] MEDS: cefTRIAXone SOD 1,000 MG VL IM ONE (13:43)
[2024-06-06] MEDS: ACETAMINOPHEN 500 MG TAB PO ONE (13:43)
--- NOTE | 2024-06-06 13:43 | ED.PDOC ---
Eye-HPI HPI Comments A 38 YEAR OLD FEMALE PRESENTS TO THE ED WITH COMPLAINT OF SORE THROAT AND BREAST LUMPS. PATIENT STATES SHE HAS BEEN EXPERIENCING A SORE THROAT AND BODY ACHES FOR THE PAST 2 DAYS. PATIENT NOTES SHE WAS ALSO HAD MULTIPLE BILATERAL BREAST LUMPS, BUT NOTES SHE HAS A HISTORY OF HIDRADENITIS SUPPURATIVA AND STATES IT HAS BEEN FLARING UP OVER THE LAST 3 DAYS. PATIENT DENIES FEVER, CHILLS, SHORTNESS OF BREATH, CHEST PAIN, ABDOMINAL PAIN, NAUSEA, VOMITING, HEADACHE, OR OTHER COMPLAINTS. NO OTHER SYMPTOMS OR MODIFYING FACTORS AT THIS TIME. PATIENT IS ALERT, ORIENTED X 4, AND HAS STEADY GAIT. Chief Complaint: Sore Throat Time Seen by MD: 12:44 Primary Care Provider: SONG Reviewed Notes: Nurses Notes, Medications, Allergies Allergies: Coded Allergies: NO KNOWN ALLERGIES (Unverified , 01/18/20) Home Meds Active Scripts Naproxen Sodium (Naproxen) 220 Mg Tab, 220 MG PO BID for 7 Days, #14 TAB Prov:FRANKIE CLAROS MD 09/26/23 Reported Medications Vit W/ Ferrous Fumara (PNV PLUS MULTIVI) Plus Tab, 1 TAB OR DAILY, TAB 08/09/17 Information Source: Patient Mode of Arrival: Ambulatory Timing: Days Duration: Since onset, Days Prehospital treatment: None Quality: Pain, Red Lids: Normal Conjunctiva: Normal Cornea: Normal Pupils: Normal EOM: Normal Fundus: Normal Slit lamp exam: Normal Anterior chamber: Normal Mouth Location: Pharynx Mouth: Normal ENT Ear Exam: Normal, Normal, Normal Nose: Normal Sinuses: Normal Oropharynx: Tonsillar hypertrophy, Red, Exudate Onset: Spontaneous Throat Exposed to: None History of: None Last Tetanus: Unknown Modifying factors: Nothing Associated signs and symptoms: Sore Throat, Other (BUMPS ON BILATERAL BREAST W ALL) Past Medical History Past Medical History (Other): HYDRADENITIS SUPPURATIVA Surgical History: Denies all surgeries KILN HEAD HOUSE OPERATOR History: Denies all KILN HEAD HOUSE OPERATOR Hx Family History Family History: Reviewed,noncontributory to illness, Family hx of Cancer Social History Smoker: Non-Smoker Alcohol: Denies ETOH Use Drugs: Denies Drug Use Lives In: Home Constitutional: denies: chills, diaphoresis, fatigue, fever, malaise, sweats, weakness, others EENTM: reports: throat pain, throat swelling; denies: blurred vision, double vision, ear bleeding, ear discharge, ear drainage, ear pain, ear ringing, eye pain, eye redness, hearing loss, mouth pain, mouth swelling, nasal discharge, nose bleeding, nose congestion, nose pain, photophobia, tearing, voice changes, others Respiratory: denies: cough, hemoptysis, orthopnea, SOB at rest, shortness of br eath, SOB with excertion, stridor, wheezing, others Cardiovascular: denies: chest pain, dizzy spells, diaphoresis, Dyspnea on exertion, edema, irregular heart beat, left arm pain, lightheadedness, palpitations, PND, syncope, others Gastrointestinal: denies: abdomen distended, abdominal pain, blood streaked bowels, constipated, diarrhea, dysphagia, difficulty swallowing, hematemesis, melena, nausea, poor appetite, poor fluid intake, rectal bleeding, rectal pain, vomiting, others Genitourinary: denies: abnormal vagina bleeding, burning, dyspareunia, dysuria, flank pain, frequency, hematuria, incontinence, pain, , vagina discharge, urgency, others Neurological: denies: dizziness, fainting, headache, left sided numbness, left sided weakness, numbness, paresthesia, pre-existing deficit, right sided numbness, right sided weakness, seizure, speech problems, tingling, tremors, weakness, others Musculoskeletal: denies: back pain, gout, joint pain, joint swelling, muscle pain, muscle stiffness, neck pain, others Integumetry: reports: lumps (PAINFUL LUMPS OF BILATERAL BREAST WALL ); denies: bruises, change in color, change in hair/nails, dryness, laceration, lesions, rash, wounds, others Allergic/Immunocompromised: denies: Difficulty Healing, Frequent Infections, Hives, Itching, others Hematologic/Lymphatic: denies: anemia, blood clots, easy bleeding, easy bruising, swollen glands, others Endocrine: denies: excessive hunger, excessive sweating, excessive thirst, excessive urination, flushing, intolerance to cold, intolerance to heat, unexplained weight gain, unexplained weight loss, others Psychiatric: denies: anxiety, bipolar disorder, depression, hopeless, panic disorder, schizophrenia, sleepless, suicidal, others All Other Systems: Reviewed and Negative Physical Exam General Appearance: No Apparent Distress, Obese HEENT: PERRL/EOMI, Pharyngeal Erythema (TONSILLAR SWELLING WITH MILD EXUDATES. ), TMs Normal, Tonsillar Exudate Neck: Full Range of Motion, Non-Tender, Normal, Normal Inspection Respiratory: Chest Non-Tender, Lungs Clear, No Accessory Muscle Use, No Respiratory Distress, Normal Breath Sounds Cardiovascular: No Edema, No JVD, No Murmur, No Gallop, Normal Peripheral Pulses, Regular Rate/Rhythm Breast Exam: Other (A FEW RED BUMPS ON BILATERAL BREAST WALL, NO LUMPS AND CYSTS PALPABLE WITH BREAST EXAM. ) Gastrointestinal: No Organomegaly, Non Tender, No Pulsatile Mass, Normal Bowel Sounds, Soft Genitalia: Deferred Pelvic: Deferred Rectal: Deferred Extremities: No calf tenderness, Normal capillary refill, Normal inspection, Normal range of motion, Non-tender, No pedal edema Musculoskeletal : Apperance: Normal Neurologic: Alert, materials engineering technician II-XII nml as Tested, No Motor Deficits, Normal Affect, Normal Mood, No Sensory Deficits Cerebellar Function: Normal Reflexes: Normal Skin: Dry, Warm, Wounds (A FEW SMALL BUMPS WITH LOCALIZED REDNESS AND TENDERNESS ON BILATERAL BREAST WALL, NO OPEN WOUND AND PUS DRAINAGE. ) Peripheral Pulses: 2+ carotid (R), 2+ carotid (L) Lymphatic: No Adenopathy Was a procedure done? Was a procedure done?: No EENT DIFF Eye: N/A Ear: Otitis Media, Pharyngitis, Sinusitis Nose: N/A Mouth: Other Sore Throat: Pharyngitis, Streptococcal, Viral Pharyngitis, URI X-Ray, Labs, Meds, VS Vital Signs Date Time Temp Pulse Resp B/P (MAP) Pulse Ox O2 Delivery O2 Flow Rate FiO2 06/06/24 13:36 106 20 98 Room Air 06/06/24 13:36 98.2 106 20 126/77 (93) 98 98.2 06/06/24 12:40 98.2 106 20 126/77 (93) 98 Current Medications Medications (Trade) Dose Ordered Sig/Stewart Route Start Time Stop Time Status Last Admin Ceftriaxone Sodium (Rocephin) 1,000 mg ONCE ONCE IM 06/06/24 13:45 06/06/24 13:46 DC 06/06/24 13:43 Acetaminophen (Tylenol Tablet) 1,000 mg ONCE ONCE PO 06/06/24 13:45 06/06/24 13:46 DC 06/06/24 13:43 X-Ray, Labs, Meds, VS Comment TREATMENT: ROCEPHIN 1 G IM AND TYLENOL 1GM PO Time of 1ST Reevaluation: 14:10 Reevaluation 1ST: Improved Patient Education/Counseling: Diagnosis, Treatment, Need For Follow Up Family Education/Counseling: Diagnosis, Treatment, Need For Follow Up Medical Screening: No EMC Exist At This Time Departure 1 Departure Time of Disposition: 14:10 Impression: Primary Impression: Acute tonsillitis Qualified Codes: J03.90 - Acute tonsillitis, unspecified Additional Impression: Hidradenitis suppurativa of multiple sites Disposition: 01 HOME / SELF CARE / HOMELESS Condition: Stable Additional Instructions: FOLLOW-UP WITH PCP IN 1 TO 2 DAYS. TAKE MEDICATIONS PRESCRIBED. RETURN TO ED FOR ANY NEW OR WORSENING SYMPTOMS. e-Prescriptions Ibuprofen (Ibuprofen) 800 Mg Tab 1 TAB PO TID, #30 TAB Prov: CLAIRE ROSENBERG 06/06/24 Clindamycin Hcl (Clindamycin Hcl) 300 Mg Cap 300 MG PO QID, #40 CAP Prov: CLAIRE ROSENBERG 06/06/24 Discharged With: Self Critical Care Note Critical Care Time?: No Stability Stability form required: No I personally scribed for CLAIRE ROSENBERG ([email or web address]) on 06/06/24 at 13:43. Electronically submitted by Elgin Davis ([email or web address]). CLAIRE ROSENBERG Jun 06, 2024 13:43
[2024-06-06] MEDS ORDERED: CLIN1CAP70 PO (13:52)
[2024-06-06] MEDS ORDERED: IBUP-1456 PO (13:52)
== END 2024-06-06 13:59 | disposition home or self-care (01) ==
LOC: ER 12:32
DX: J03.90 Acute tonsillitis, unspecified (principal); L73.2 Hidradenitis suppurativa
CPT/HCPCS: 96372; 99283; J0696